=== PATIENT | female | born 2000 | race Caucasian/White ===

== ENCOUNTER 2022-08-31 20:49 | Emergency (ER) | payer BC ==
[2022-08-31] MEDS ORDERED: Ketorolac 30 MG/ML SDV IM ONE (21:15)
[2022-08-31] MEDS ORDERED: Ibuprofen 400 MG Tab PO ONE (21:39)
== END 2022-08-31 22:28 | disposition home or self-care (01) ==
LOC: DL.ED 20:49
DX: S97.81XA Crushing injury of right foot, initial encounter (principal); W20.8XXA Other cause of strike by thrown, projected or falling object, initial encounter
CPT/HCPCS: 73630; 99282; 99283; A9270

== ENCOUNTER 2024-06-08 01:57 | Emergency (ER) | payer BC, OTHER ==
[2024-06-08] MEDS: Take Home: Clindamycin HCl 150 MG, 12 Cap Pack PO ONE (02:18)
[2024-06-08] MEDS: Take Home: Acetaminophen/HYDROcodone 325-5 MG, 5 Tab Pack PO ONE (02:18)
== END 2024-06-08 02:24 | disposition home or self-care (01) ==
LOC: DL.ED 01:57
DX: K04.7 Periapical abscess without sinus (principal)
CPT/HCPCS: 99282; A9270

== ENCOUNTER 2024-09-20 16:32 | Emergency (ER) | payer BC, OTHER | END 2024-09-20 17:34 | disposition home or self-care (01) | LOC: DL.ED 16:32 | DX: K08.89 Other specified disorders of teeth and supporting structures (principal); F17.210 Nicotine dependence, cigarettes, uncomplicated | CPT/HCPCS: 99282 ==